=== PATIENT | female | born 1975 | race African-American/Black ===

== ENCOUNTER → 2016-05-29 | Outpatient (CLI) | payer BC ==
--- NOTE | 2016-05-29 16:26 | RAD ---
Pelvic ultrasound, 05/29/2016: History: Pelvic pain, menorrhagia Transabdominal and transvaginal scans were obtained. The uterus is within normal limits in size. A small nabothian cyst is present in the cervical region. There is a 2 cm hypoechoic mass present in the anterior aspect of the uterus. This is probably a uterine fibroid. The central uterine echo complex measures 7 mm. The ovaries are of normal size. A 1.5 cm small nodule with cystic and echogenic components is noted in the right ovary. This may be a complicated/hemorrhagic cyst. The ovaries are otherwise unremarkable. Blood flow is present in both ovaries. No free fluid is evident in the pelvis. IMPRESSION: 1. Small uterine fibroid. 2. Small complex lesion in the right ovary which may be a hemorrhagic cyst. Sonographic follow-up is suggested to exclude a neoplastic etiology.
== END | disposition home or self-care (01) ==
LOC: US 15:04
PROVIDERS: ATTEND Family Medicine
DX: N92.1 Excessive and frequent menstruation with irregular cycle (principal)
CPT/HCPCS: 76830; 76856